=== PATIENT | female | born 1950 | race Caucasian/White ===

== ENCOUNTER → 2024-07-27 13:08 | Outpatient (REF) | payer OTHER, SELFPAY | LOC: RAD 13:08 | PROVIDERS: ATTENDING PHYSICIAN Nurse Practitioner Primary Care; FAMILY PHYSICIAN Family Medicine | DX: K59.00 Constipation, unspecified (principal); K44.9 Diaphragmatic hernia without obstruction or gangrene; K21.9 Gastro-esophageal reflux disease without esophagitis; R10.10 Upper abdominal pain, unspecified | CPT/HCPCS: 74177; Q9967 ==